=== PATIENT | male | born 1990 | race Asian ===

== ENCOUNTER 2020-01-02 19:44 | Emergency (ER) | payer OTHER ==
[2020-01-02 20:55] LABS: ABS Lymphocytes 0.5 10^3/ul (1.0-4.8); ABS Monocytes 0.6 10^3/ul (0-0.8); ABS Neutrophils 9.2 10^3/ul (1.5-7.7); Eosinophil % 0.1 %; Hematocrit 37 % (42-52); Hemoglobin 13.1 g/dL (14.0-18.0); Lymphocyte % 5.2 %; Mean Corpuscular HGB Conc 35 g/dL (31-36); Mean Corpuscular Hemoglobin 32 pg (27-31); Mean Corpuscular Volume 89 fL (80-94); Platelet Count 176 10^3/uL (150-450); Red Blood Count 4.16 10^6 /uL (4.18-5.48); Red Cell Distribution Width 12 % (10-15); White Blood Count 10.4 10^3/uL (3.5-10.8)
[2020-01-02 21:14] LABS: ALT 11 U/L (7-52); AST 14 U/L (13-39); Albumin 4.8 g/dL (3.2-5.2); Albumin/Globulin Ratio 1.7 (1-3); Alkaline Phosphatase 62 U/L (34-104); Anion Gap 6 mmol/L (2-11); Blood Urea Nitrogen 16 mg/dL (6-24); C Reactive Protein 66.54 mg/L (<8.01); CO2 Carbon Dioxide 29 mmol/L (22-32); Calcium 9.2 mg/dL (8.6-10.3); Chloride 101 mmol/L (101-111); EGFR African American 91.3 (>60); EGFR Non-African American 75.4 (>60); Globulin 2.8 g/dL (2-4); Glucose 130 mg/dL (70-100); Potassium 3.9 mmol/L (3.5-5.0); Sodium 136 mmol/L (135-145); Total Protein 7.6 g/dL (6.4-8.9)
[2020-01-02] MEDS ORDERED: NS 0.9% 1000 ML** 1,000 ML IV ONE (22:01)
[2020-01-02 22:23] LABS: Urine Appearance Clear; Urine Bilirubin Negative (Negative); Urine Blood Negative (Negative); Urine Color Yellow; Urine Glucose Negative (Negative); Urine Ketones Negative (Negative); Urine Nitrite Negative (Negative); Urine Protein Negative (Negative); Urine Specific Gravity 1.011 (1.010-1.030); Urine Urobilinogen Negative (Negative)
[2020-01-02] MEDS ORDERED: Iohexol 300* (CONTRAST) 10 ML SDV IV ONE (23:48)
[2020-01-03] MEDS ORDERED: Amoxicillin/Clavulanate TAB* 875 MG PO ONE (00:39)
[2020-01-03] MEDS ORDERED: metroNIDAZOLE TAB* 250 MG PO ONE (00:39)
--- NOTE | 2020-01-03 00:39 | ED ---
GI/ HPI - HPI Summary HPI Summary: 29 year old male presents with abd pain for the past week. He states became more persistent in right lower quadrant today. He states it was intermittent before. States he was having left upper quadrant pain a week ago. He was constipated before but then he had diarrhea. He admits nausea no vomiting. No decrease in appetite. No urinary symptoms. Has no medical conditions. No abd surgeries. He denies any cough. - History of Current Complaint Chief Complaint: EDAbdPain Time Seen by Provider: 01/02/20 21:57 Stated Complaint: ABD PAIN PER PT Pain Intensity: 5 - Allergy/Home Medications Allergies/Adverse Reactions: Allergies Allergy/AdvReac Type Severity Reaction Status Date / Time No Known Allergies Allergy Verified 01/02/20 22:19 PMH/Surg Hx/FS Hx/Imm Hx Endocrine/Hematology History: Denies: Hx Diabetes Cardiovascular History: Denies: Hx Hypertension - Immunization History Date of Influenza Vaccine: 2019 Immunizations Up to Date: Yes Infectious Disease History: No Infectious Disease History: Denies: Traveled Outside the [place] in Last 30 Days - Family History Known Family History: Positive: Non-Contributory - Social History Alcohol Use: Occasionally Substance Use Type: Reports: None Smoking Status (MU): Never Smoked Tobacco Review of Systems Negative: Fever Negative: Chest Pain Negative: Shortness Of Breath Positive: Abdominal Pain All Other Systems Reviewed And Are Negative: Yes Physical Exam Triage Information Reviewed: Yes Vital Signs On Initial Exam: Initial Vitals Temp Pulse Resp BP Pulse Ox 99.9 F 102 16 140/83 98 01/02/20 19:48 01/02/20 19:48 01/02/20 19:48 01/02/20 19:48 01/02/20 19:48 Vital Signs Reviewed: Yes Appearance: Positive: Well-Appearing Skin: Positive: Warm, Dry Head/Face: Positive: Normal Head/Face Inspection Eyes: Positive: Normal, Conjunctiva Clear ENT: Positive: Pharynx normal Respiratory/Lung Sounds: Positive: Clear to Auscultation, Breath Sounds Present Cardiovascular: Positive: Normal, RRR Abdomen Description: Positive: Soft, Other: - tenderness in RLQ Bowel Sounds: Positive: Present Musculoskeletal: Positive: Normal Neurological: Positive: Normal Psychiatric: Positive: Normal Procedures - Sedation Patient Received Moderate/Deep Sedation with Procedure: No Diagnostics - Vital Signs Vital Signs Temp Pulse Resp BP Pulse Ox 01/02/20 22:49 92 18 127/65 95 01/02/20 22:22 129/77 01/02/20 22:10 95 98 01/02/20 21:42 96 129/77 99 01/02/20 19:48 99.9 F 102 16 140/83 98 - Laboratory Lab Results: Lab Results 01/02/20 01/02/20 01/02/20 Range/Units 20:48 20:48 22:10 WBC 10.4 (3.5-10.8) 10^3/uL RBC 4.16 L (4.18-5.48) 10^6 /uL Hgb 13.1 L (14.0-18.0) g/dL Hct 37 L (42-52) % MCV 89 (80-94) fL MCH 32 H (27-31) pg MCHC 35 (31-36) g/dL RDW 12 (10-15) % Plt Count 176 (150-450) 10^3/uL MPV 8.0 (7.4-10.4) fL Neut % (Auto) 88.4 % Lymph % (Auto) 5.2 % [place] % (Auto) 6.2 % Eos % (Auto) 0.1 % Baso % (Auto) 0.1 % Absolute Neuts (auto) 9.2 H (1.5-7.7) 10^3/ul Absolute Lymphs (auto) 0.5 L (1.0-4.8) 10^3/ul Absolute Monos (auto) 0.6 (0-0.8) 10^3/ul Absolute Eos (auto) 0.0 (0-0.6) 10^3/ul Absolute Basos (auto) 0.0 (0-0.2) 10^3/ul Absolute Nucleated RBC 0.0 10^3/ul Nucleated RBC % 0.0 Sodium 136 (135-145) mmol/L Potassium 3.9 (3.5-5.0) mmol/L Chloride 101 (101-111) mmol/L Carbon Dioxide 29 (22-32) mmol/L Anion Gap 6 (2-11) mmol/L BUN 16 (6-24) mg/dL Creatinine 1.14 (0.67-1.17) mg/dL Est GFR ( Amer) 91.3 (>60) Est GFR (Non-Af Amer) 75.4 (>60) BUN/Creatinine Ratio 14.0 (8-20) Glucose 130 H (70-100) mg/dL Calcium 9.2 (8.6-10.3) mg/dL Total Bilirubin 0.70 (0.2-1.0) mg/dL AST 14 (13-39) U/L ALT 11 (7-52) U/L Alkaline Phosphatase 62 (34-104) U/L C-Reactive Protein 66.54 H (<8.01) mg/L Total Protein 7.6 (6.4-8.9) g/dL Albumin 4.8 (3.2-5.2) g/dL Globulin 2.8 (2-4) g/dL Albumin/Globulin Ratio 1.7 (1-3) Lipase < 10 L (11.0-82.0) U/L Urine Color Yellow Urine Appearance Clear Urine pH 6.0 (5-9) Ur Specific [place] 1.011 (1.010-1.030) Urine Protein Negative (Negative) Urine Ketones Negative (Negative) Urine Blood Negative (Negative) Urine Nitrate Negative (Negative) Urine Bilirubin Negative (Negative) Urine Urobilinogen Negative (Negative) Ur Leukocyte Esterase Negative (Negative) Urine Glucose Negative (Negative) Result Diagrams: 01/02/20 20:48 01/02/20 20:48 Lab Statement: Any lab studies that have been ordered have been reviewed, and results considered in the medical decision making process. - CT abd CT Interpretation Completed By: Radiologist Summary of CT Findings: IMPRESSION: 1. The appendix is unremarkable. 2. There is a large fecalith in the cecum measuring 15 mm and there is abnormal wall thickening involving the cecum and ascending colon with significant fat stranding in this region suspicious for infectious or inflammatory proximal colitis. No visible abscess or signs of gross perforation. GIGU Course/Dx - Course Course Of Treatment: 29 year old male presents with abd pain for the past week. He states became more persistent in right lower quadrant today. He states it was intermittent before. States he was having left upper quadrant pain a week ago. He was constipated before but then he had diarrhea. He admits nausea no vomiting. No decrease in appetite. No urinary symptoms. Has no medical conditions. No abd surgeries. He denies any cough. On exam tenderness right lower quadrant. White blood cell count normal. CRP elevated. CT shows fecalith with potential colitis. We'll treat with colitis with Augmentin and Flagyl. Told to follow up with [facility]. Patient understands and agrees plan. - Diagnoses Differential Diagnoses - Male: Colitis, Gastroenteritis (Viral), Urinary Tract Infection Provider Diagnoses: Colitis Discharge ED - Sign-Out/Discharge Documenting (check all that apply): Patient Departure - Discharge Plan Condition: Good Disposition: HOME Prescriptions: Amoxicillin/Clavulanate TAB* [Augmentin TAB 875*] 875 mg PO BID #13 tab metroNIDAZOLE [Flagyl 500 MG TAB] 500 mg PO TID #20 tab Naproxen [Naproxen 500 mg tab] 500 mg PO Q12HR #14 tablet. Patient Education Materials: Colitis (ED) Referrals: No Primary Care Phys,NOPCP [Primary Care Provider] - Additional Instructions: Take augmentin twice a day for 7 days, first dose given in ED Take Flagyl every 8 hours for 7 days, first dose given in ED follow a bland diet follow up with [facility] Return to ED if develop any new or worsening symptoms - Billing Disposition and Condition Condition: GOOD Disposition: Home
[2020-01-03 00:43] VITALS: BP 137/83
[2020-01-03] MEDS ORDERED: Ketorolac INJ* 30 MG/ML 1 ML VIAL IM ONE (00:53)
== END 2020-01-03 00:42 | disposition home or self-care (01) ==
LOC: ED 19:44
DX: K52.9 Noninfective gastroenteritis and colitis, unspecified (principal); R10.9 Unspecified abdominal pain
CPT/HCPCS: 36415; 74177; 80053; 81003; 83690; 85025; 86140; 96360; 96372; 99283; A9270-GY; J1885